=== PATIENT | male | born 2000 | race Caucasian/White ===

== ENCOUNTER 2019-05-26 09:21 | Emergency (ER) | payer BC, OTHER ==
[~2019-05-26] VITALS: Ht 172.7 cm; Wt 90.3 kg
--- NOTE | 2019-05-26 10:04 | ED EENT ---
History of Present Illness General Chief Complaint: Oral/Throat Problems Stated Complaint: COUGHING BLOOD History of Present Illness Date Seen by Provider: May 26, 2019 Time Seen by Provider: 10:00 Initial Comments 19 yo male presented initially with c/o hemoptysis vague hx says he started smoking electronic cigarette few months ago seems to have had some throat soreness & congestion since no one else with ST or illness he's aware of Allergies and Home Medications Home Medications Prednisone 20 Mg Tab, 40 MG PO DAILY Prescribed by: DENA FOSTER on 05/26/19 1106 Patient Home Medication List Home Medication List Reviewed: Yes Review of Systems Review of Systems Constitutional: fever Ears: Denies Pain Throat: pain, discharge Respiratory: hemoptysis; No short of breath Cardiovascular: No palpitations, No syncope All Other Systems Reviewed Negative Unless Noted: Yes Past Iraknom-Ieuvtj-Kqsnes Hx Family Medical History Reviewed Nursing Family Hx Physical Exam Vital Signs Vital Signs - First Documented 05/26/19 10:09 Temp 100.2 Pulse 94 Resp 18 B/P (MAP) 129/75 (93) Pulse Ox 99 O2 Delivery Room Air Height, Weight, BMI Height: '" Weight: lbs. oz. kg; BMI Method: General Appearance: no apparent distress Eyes: bilateral eye PERRL, bilateral eye EOMI Ears: bilateral ear TM normal Mouth/Throat: pharynx swelling, tonsillar exudate, tonsillar swelling Neck: supple Cardiovascular: regular rate, rhythm Respiratory: lungs clear Gastrointestinal: normal bowel sounds, non tender, soft Skin: warm/dry Progress/Results/Core Measures Results/Orders Lab Results Laboratory Tests Test 05/26/19 09:58 05/26/19 10:30 Range/Units Group A Streptococcus Screen NEGATIVE NEGATIVE Monoscreen POSITIVE H NEGATIVE My Orders Orders - DENA FOSTER MD Chest Pa/Lat (2 View) (05/26/19 09:48) Rapid Strep A Screen (05/26/19 09:55) Monotest (05/26/19 10:20) Vital Signs/I&O 05/26/19 05/26/19 10:09 11:31 Temp 100.2 99.8 Pulse 94 90 Resp 18 18 B/P (MAP) 129/75 (93) 129/75 (93) Pulse Ox 99 99 O2 Delivery Room Air Room Air Progress Progress Note : Progress Note CXR neg strep neg MONO is POSITIVE Departure Impression Primary Impression: Mononucleosis syndrome Disposition: HOME, SELF-CARE Condition: Stable Departure-Patient Inst. Decision time for Depature: 11:04 Referrals: NO,LOCAL PHYSICIAN (PCP/Family) Primary Care Physician Patient Instructions: Mononucleosis Test Scripts Prednisone (Prednisone) 20 Mg Tab 40 MG PO DAILY for 5 Days, #10 TAB 0 Refills Prov: DENA FOSTER MD 05/26/19 DENA FOSTER MD May 26, 2019 10:04
--- NOTE | 2019-05-26 10:10 | Diagnostic Imaging Report ---
INDICATION: Shortness of breath. FINDINGS: The lungs are clear. The heart and vessels normal. There is no effusion or pneumothorax. IMPRESSION: No acute appearing abnormality. Dictated by: Dictated on workstation # [id number]
[2019-05-26] MEDS ORDERED: PRD20T PO (11:06)
[2019-05-26 11:31] VITALS: BP 129/75
== END 2019-05-26 11:31 | disposition home or self-care (01) ==
LOC: ER FS 09:23
DX: B27.90 Infectious mononucleosis, unspecified without complication (principal); F17.290 Nicotine dependence, other tobacco product, uncomplicated
CPT/HCPCS: 36415; 71046; 86308; 87430